=== PATIENT | female | born 1970 | race Caucasian/White ===

== ENCOUNTER 2018-03-02 17:41 | Day surgery (SDC) | payer SELFPAY ==
[~2018-03-02] VITALS: Ht 172.7 cm; Wt 119.5 kg
[2018-03-02 17:37] VITALS: BP 139/78
[2018-03-02] MEDS ORDERED: LACTATED RINGERS 1,000 ML IV PRN (18:07)
[2018-03-02] MEDS ORDERED: ceFAZolin 2 GM IV Premixed 50 ML IV ONE (18:15)
[2018-03-02] MEDS ORDERED: metroNIDAZOLE 500MG/100ML IVPB IV ONE (18:15)
[2018-03-02] MEDS ORDERED: ONDANSETRON 4 MG/2 ML (SDV) Z0FRAN ONE ×2 (18:19→19:56)
[2018-03-02] MEDS ORDERED: ROCURONIUM 10 MG/ML 5 ML SYRINGE IV ONE (18:19)
[2018-03-02] MEDS ORDERED: DEXAMETHASONE 10 MG/ML (DECADRON) 1 ML VIAL ONE (18:19)
[2018-03-02] MEDS ORDERED: proPOfol 200 MG/20 ML (DIPRIVAN) VIAL IV ONE (18:19)
[2018-03-02] MEDS ORDERED: LIDOCAINE PF 2% 5 ML (XYLOCAINE) VIAL ONE (18:19)
[2018-03-02] MEDS ORDERED: fentaNYL INJECTION 100 MCG/2 ML AMP ONE ×2 (18:20→20:27)
--- NOTE | 2018-03-02 18:20 | History & Physical-Surgical ---
History of Present Illness History of Present Illness Reason for visit/HPI CC: rlq abdominal pain. Patient is a 47-year-old female who was transferred from [facility] for acute appendicitis. She began having pain in the right lower quadrant yesterday morning. She states It moved back and forth the right lower quadrant. Patient originally felt this was related to some of her chronic back pain. Patient states that she took for ibuprofen which did not seem to help and then she began having nausea and vomiting yesterday the rest the day. Patient's pain has continued and has not improved overnight therefore today since she had continued pain she went to the emergency department for further evaluation. She states that movement makes the pain worse. Nothing really seems to make it better. Patient white count reported as 23,[address] scan that was consistent with acute appendicitis. Patient is not having any fever. Patient just really hasn't felt well. She denies any sweats chills shortness of breath or chest pain. Date of Admission T Date Seen by Provider: Mar 02, 2018 Time Seen by Provider: 18:16 I consulted on this patient on 03/02/18 18:13 Attending Physician Sam Herring DO Admitting Physician No,Local Physician Consult Allergies and Home Medications Allergies Coded Allergies: aspirin (Verified Allergy, Unknown, 03/02/18) MAKES NAUSEATED Patient Home Medication List Home Medication List Reviewed: Yes Past Vfacwgm-Cppfbw-Inekbp Hx Patient Social History Alcohol Use: Rarely Uses Recreational Drug Use: No Smoking Status: Current Everyday Smoker Type Used: Cigarettes Recent Foreign Travel: No Contact w/Someone Who Travel: No Recent Infectious Disease Expo: No Surgeries History of Surgeries: Yes Surgeries: Section Respiratory History of Respiratory Disorde: Yes Respiratory Disorders: Asthma Cardiovascular History of Cardiac Disorders: No Neurological History of Neurological Disord: No Reproductive System : No Genitourinary History of Genitourinary Disor: Yes Genitourinary Disorders: Bladder Infection Gastrointestinal History of Gastrointestinal Di: No Musculoskeletal History of Musculoskeletal Dis: Yes Musculoskeletal Disorders: Back Injury Endocrine History of Endocrine Disorders: No HEENT History of HEENT Disorders: No Loss of Vision: Denies Cancer History of Cancer: No Psychosocial History of Psychiatric Problem: No Integumentary History of Skin or Integumenta: No Blood Transfusions History of Blood Disorders: No Family Medical History Significant Family History: No Pertinent Family Hx Review of Systems Constitutional: see HPI EENTM: no symptoms reported Respiratory: no symptoms reported Cardiovascular: no symptoms reported Gastrointestinal: see HPI Genitourinary: no symptoms reported Musculoskeletal: back pain Skin: no symptoms reported Psychiatric/Neurological: No Symptoms Reported Physical Exam Vital Signs Vital Signs - First Documented 03/02/18 17:37 Temp 98.3 Pulse 67 Resp 20 B/P (MAP) 139/78 (98) Pulse Ox 98 O2 Delivery Room Air Capillary Refill : Height, Weight, BMI Height: 5'8.00" Weight: 263lbs. 7.0oz. 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 patient was discussed risks and benefits of laparoscopic appendectomy all other indicated procedures, possible open. patient understands risks and benefits and wishes to proceed. patient to or Admission Status: Observation Assessment/Plan acute appendicitis rlq abdominal pain. patient was discussed risks and benefits of laparoscopic appendectomy all other indicated procedures, possible open. patient understands risks and benefits and wishes to proceed. patient to or Clinical Quality Measures DVT/VTE Risk/Contraindication: Risk Factor Score Per Nursin RFS Level Per Nursing on Admit: 2=Moderate SAM HERRING DO Mar 02, 2018 6:20 pm
[2018-03-02] MEDS ORDERED: SEVOFLURANE (ULTANE) 15 ML INHAL SOLN ONE ×4 (18:31→20:48)
[2018-03-02] MEDS ORDERED: BUPIVACAINE 0.5% 30 ML (SENSORCAINE) VIAL ONE (18:33)
[2018-03-02] MEDS ORDERED: LIDOCAINE 1% INJ 20 ML 20 ML VIAL ONE (18:33)
[2018-03-02] MEDS ORDERED: MIDAZOLAM 2 MG/2 ML (VERSED) VIAL ONE (18:35)
[2018-03-02] MEDS: LACTATED RINGERS 1,000 ML IV SCH (19:07)
[2018-03-02] MEDS ORDERED: ceFAZolin 1,000 MG/10 ML (ANCEF) VIAL ONE (19:27)
[2018-03-02] MEDS ORDERED: metroNIDAZOLE 500MG/100ML IVPB 100 ML ONE (19:27)
[2018-03-02] MEDS ORDERED: morphine INJ 10 MG/ML 1ML (SYR OR VIAL) ONE (19:56)
[2018-03-02] MEDS ORDERED: GLYCOPYRROLATE 0.2 MG/ML (ROBINUL) 2 ML VIAL ONE (19:58)
[2018-03-02] MEDS ORDERED: NEOSTIGMINE 1 MG/ML 5 ML SYRINGE ONE (19:58)
--- NOTE | 2018-03-02 20:35 | Progress Note-Post Operative ---
Post-Operative Progess Note Surgeon (s)/Screen And Cyclone Repairer (s) Surgeon SAM PEÑA DO Screen And Cyclone Repairer: na Pre-Operative Diagnosis acute appendicitis Post-Operative Diagnosis same Procedure & Operative Findings Date of Procedure 03/02/18 Procedure Performed/Findings laparoscopic appendectomy Anesthesia Type gen Estimated Blood Loss Estimated blood loss (mL): min Specimens/Packing Specimens Removed appendix SAM PEÑA DO Mar 02, 2018 20:35
[2018-03-02] MEDS ORDERED: DOCU-143 PO (20:38)
[2018-03-02] MEDS ORDERED: ACHD5005 PO (20:38)
--- NOTE | 2018-03-02 20:40 | Discharge Inst-Simple/Standard ---
Discharge Inst-Standard Discharge Medications New, Converted or Re-Newed RX: RX on Chart Patient Instructions/Follow Up Plan of Care/Instructions/FU: 2 weeks Herring Activity as Tolerated: No Discharge Diet: Regular Diet Other Inst to Patient Follow up Appt: Make appointment for 2 week. Instructions: No lifting greater than 10 pounds. No strenuous activity. May shower in 24 hours, no tub bath or soaking. Use incentive spirometer at home as directed. No Smoking Skin/Wound Care: You have special glue over incisions, it will fall off on its own. Symptoms to Report: Appetite Changes, Extremity Discoloration, Numbness/Tingling, Swelling Increased , Bleeding Excessive, Eyesight Changes, Pain Increased, Urine Color Change, Constipation(Persistent), Fever over 101 degree F, Pain/Pressure in chest, Urinating Difficulty, Cough Up/Vomit Blood, Heart Beat Irreg/Pounding, Pain/ Pressure in jaw, Vaginal Bleeding Increase, Cramps in feet or legs, Lightheadedness, Pain/Pressure in shoulder, Diarrhea(Persistent), Memory Changes Suddenly, Questions/Concerns, Weight gain consecutive days, Dizziness/ Fainting, Nausea/Vomiting, Shortness of Breath, Weight gain over 2 pounds If questions or concerns contact your physician Or seek help at emergency department. SAM HERRING DO Mar 02, 2018 20:40
[2018-03-02] MEDS ORDERED: morphine INJ 10 MG/ML 1ML (SYR OR VIAL) IV PRN (20:45)
[2018-03-02] MEDS ORDERED: MEPERIDINE (DEMEROL) INJ 50 MG/ML IVP ONE (21:00)
[2018-03-02] MEDS ORDERED: PROMETHAZINE INJ 25 MG/ML (PHENERGAN) AMP IVP ONE (21:00)
[2018-03-02] MEDS ORDERED: morphine INJ 10 MG/ML 1ML (SYR OR VIAL) IVP ONE (21:00)
[2018-03-02] MEDS ORDERED: ONDANSETRON 4 MG/2 ML (SDV) Z0FRAN IVP PRN (21:00)
[2018-03-02] MEDS ORDERED: fentaNYL INJECTION 100 MCG/2 ML AMP IVP ONE (21:00)
[2018-03-02] MEDS ORDERED: HYDROmorphone 2 MG/ML VIAL (DILAUDID) IV ONE (21:00)
[2018-03-02 21:50] VITALS: BP 126/66
[2018-03-02] MEDS ORDERED: metroNIDAZOLE 500MG/100ML IVPB IV SCH (22:00)
[2018-03-02] MEDS: NS IV 1000 ML 1,000 ML IV SCH (22:02)
[2018-03-03] VITALS: BP 115/64
[2018-03-03] MEDS ORDERED: ceFAZolin 1,000 MG/10 ML (ANCEF) VIAL ONE (03:11)
[2018-03-03] MEDS: ceFAZolin INJECTION 2,000 MG in NS (IVPB) 50 ML IV SCH ×2 (03:21→11:08)
[2018-03-03] MEDS: LACTATED RINGERS 1,000 ML IV SCH (03:22)
[2018-03-03 04:00] VITALS: BP 115/59
[2018-03-03] MEDS: metroNIDAZOLE 500MG/100ML IVPB IV SCH ×2 (04:16→11:38)
[2018-03-03] MEDS: NS IV 1000 ML 1,000 ML IV SCH ×2 (04:37→07:36)
[2018-03-03] MEDS: HYDROcodone/APAP 5 MG/325 MG (LORTAB) TAB PO PRN ×2 (07:36→11:37)
[2018-03-03 08:00] VITALS: BP 140/78
[2018-03-03 12:00] VITALS: BP 129/67
--- NOTE | 2018-03-03 13:49 | Anesthesia-General Post-Op ---
General Patient Condition Mental Status/LOC: Same as Preop Cardiovascular: Satisfactory Nausea/Vomiting: Absent Respiratory: Satisfactory Pain: Controlled Complications: Absent Post Op Complications Complications None Follow Up Care/Instructions Patient Instructions None needed. Anesthesia/Patient Condition Patient Condition Patient was seen this morning and she was doing well. She had no anesthetic complications and appeared stable for discharge to home. MIKE VU DO Mar 03, 2018 13:49
--- NOTE | 2018-03-03 15:46 | Progress Note ---
Subjective Date Seen by Provider: Mar 03, 2018 Time Seen by Provider: 08:00 Subjective/Events-last exam patient feeling well. pain controlled. tolerating diet. denies n/v fever sweats chills shortness of breath or chest pain. Objective Exam Vital Signs Date Time Temp Pulse Resp B/P (MAP) Pulse Ox O2 Delivery O2 Flow Rate FiO2 03/03/18 15:15 03/03/18 12:00 98.7 59 18 129/67 (87) 98 Room Air 03/03/18 08:00 97.8 65 18 140/78 (98) 97 Room Air 03/03/18 04:00 97.5 59 20 115/59 (77) 97 Room Air 03/03/18 00:00 99.5 67 20 115/64 (81) 95 Room Air 03/02/18 21:50 98.1 64 20 126/66 (86) 94 Room Air 03/02/18 18:07 98 Room Air 03/02/18 17:37 98.3 67 20 139/78 (98) 98 Room Air I & O 03/03/18 07:00 Intake Total 1550 ml Output Total 600 ml Balance 950 ml Capillary Refill : General Appearance: No Apparent Distress HEENT: PERRL/EOMI, Normal ENT Inspection Neck: Non Tender, Supple Respiratory: Lungs Clear, Normal Breath Sounds Cardiovascular: Regular Rate, Rhythm Gastrointestinal: tenderness (incisional) Extremity: Normal Inspection, Normal Range of Motion Neurologic/Psychiatric: Alert, Oriented x3, No Motor/Sensory Deficits, Normal 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 s/p laparoscopic appendectomy doing well. tolerating diet advance diet as tolerates dc home later today Final Diagnosis acute appendicitis s/p laparoscopic appendectomy rlq abdominal pain Clinical Quality Measures DVT/VTE Risk/Contraindication: Risk Factor Score Per Nursin RFS Level Per Nursing on Admit: 2=Moderate SAM PEÑA DO Mar 03, 2018 15:46
--- NOTE | 2018-03-04 03:52 | OPERATIVE REPORT ---
DATE OF SERVICE: 03/02/2018 PREOPERATIVE DIAGNOSIS: Acute appendicitis. POSTOPERATIVE DIAGNOSIS: Acute appendicitis. PROCEDURE: Laparoscopic appendectomy. SURGEON: Sam Herring DO ANESTHESIA: General. ESTIMATED BLOOD LOSS: Minimal. COMPLICATIONS: None. INDICATIONS: The patient is a 47-year-old female who presented to [place] [facility] with right lower quadrant pain that she has been having since yesterday morning. The patient had a white count of approximately 23,[address] scan with findings of acute appendicitis. The patient was transferred from [place] to [facility] where I saw the patient, evaluated the patient and discussed risks and benefits of procedure and she wished to proceed with procedure. Consent was signed on the chart. DESCRIPTION OF PROCEDURE: The patient was taken to the operating suite. She was prepped and draped in sterile fashion. Surgical pause was performed. A 5 mm incision was made at the umbilicus. Kochers were used to dissect down to the fascia, grasped and elevated. A Veress needle was inserted in the abdomen and pneumoperitoneum was achieved. Under direct visualization of the laparoscope, a 5 mm trocar was placed in suprapubic region and a 12 mm trocar was placed in the left lower quadrant. The cecum was located. The appendix was visualized. There is a lot of stuck omentum onto this, which was then able to be bluntly dissected off. The cell of the terminal ileum was then adhered to the appendix, which was able to be mobilized as well. The appendix was inflamed with the mesoappendix being very edematous as well. The appendix was then grasped and elevated. A LigaSure was then used to dissect across the mesoappendix achieving hemostasis and this was continued the dissection all the way down to the base of the appendix. An Endo VERITO 2.5 stapler was then fired across the base of the appendix and the appendix was placed in an Endobag and removed through the 12 mm trocar site. The abdomen was then irrigated with copious amounts of irrigation. Staple lines were intact and hemostasis was achieved. The 12 mm trocar was then removed. An 0 Vicryl with Endoclose was used to close the fascial defect. The abdomen was then desufflated, the trocars were removed. The skin was then closed using 4-0 Monocryl in a subcuticular fashion. The abdomen was then washed and dried and Skin Affix was placed over the incisions. The patient tolerated the procedure well without any complications. She was taken to recovery room in stable condition. Job ID: [id number] DocumentID: [id number] Dictated Date: 03/03/2018 14:31:36 Medical Office Receptionist Date: 03/04/2018 00:15:52 Dictated By: SAM HERRING DO
== END 2018-03-03 15:15 | disposition home or self-care (01) ==
LOC: SDC 17:41 → 4TH 17:44 → SDC 03-03 15:15
PROVIDERS: ATTEND Surgery
DX: K35.80 Unspecified acute appendicitis (principal); J45.909 Unspecified asthma, uncomplicated; F17.210 Nicotine dependence, cigarettes, uncomplicated
CPT/HCPCS: 84703; 88304; 94664